=== PATIENT | male | born 1975 | race Caucasian/White ===

== ENCOUNTER 2016-11-12 19:53 | Emergency (ER) | payer OTHER ==
[~2016-11-12] VITALS: Ht 167.6 cm; Wt 83.0 kg
[~2016-11-12 19:53] MED LIST: ACET-2047 PO; ADV25050 INH; ALBU18HF INHALATION; BENZ100C70 PO; LEVO500T10 PO; LEVO500T72 PO; Montelukast Sodium PO; TIOT18CA INH
[2016-11-12 20:20] VITALS: Ht 167.6 cm; Wt 83.0 kg
[2016-11-12] MEDS ORDERED: HYDR-906 PO (20:38)
[2016-11-12] MEDS ORDERED: IBUP-1542 PO (20:40)
[2016-11-12] MEDS ORDERED: CLIN-73 PO (20:43)
--- NOTE | 2016-11-12 20:54 | ERD ---
ER Documentation Chief Complaint Date/Time DATE: 11/12/16 TIME: 20:49 Chief Complaint Pt with tooth pain that may require root canal, seen dentist.x 6 days. HPI Patient is a 41-year-old male with past medical history of COPD who presents to the emergency department with right molar pain 1 week. Patient states he saw a dentist 6 days ago. At that time patient was advised that he will need to have a root canal performed. Patient was placed on amoxicillin and prescribed ibuprofen 800 mg. Patient states that he does have an appointment scheduled for his root canal on next Monday. Patient states his been taking amoxicillin as well as ibuprofen with no alleviation of symptoms. Patient states current pain level is 10 out of 10. Patient states that the ibuprofen is "not making a dent in my pain". Patient denies any fevers, chills, nausea, vomiting, chest pain, shortness of breath, headache, dizziness, loss consciousness. Patient denied any throat pain, trismus, drooling, hyperextension of his neck. ROS All systems reviewed and are negative except as per history of present illness. Medications Home Meds Active Scripts Clindamycin Hcl* (Clindamycin Hcl*) 300 Mg Capsule, 300 MG PO TID for 10 Days, CAP Prov:JAREK WOOD PA-C 11/12/16 Ibuprofen* (Ibuprofen*) 600 Mg Tablet, 600 MG PO Q6 for 30 Days, TAB Prov:JAREK WOOD PA-C 11/12/16 Hydrocodone/Acetaminophen ([place] 5-325 Tablet) 1 Each Tablet, 1 TAB PO Q6H Y for PAIN, #12 TAB Prov:JAREK WOOD PA-C 11/12/16 Levofloxacin* (Levaquin*) 500 Mg Tablet, 500 MG PO DAILY for 10 Days, TAB Prov:MICHAEL TIDWELL 10/24/15 Benzonatate* (Tessalon Perle*) 100 Mg Capsule, 100 MG PO TID, #30 CAP Prov:MICHAEL TIDWELL 10/20/15 Levofloxacin* (Levofloxacin*) 500 Mg Tablet, 500 MG PO DAILY for 10 Days, TAB Prov:MICHAEL TIDWELL 10/20/15 Albuterol Sulfate* (Ventolin HFA*) 18 Gm Hfa.aer.ad, 2 PUFF INHALATION Q4H, #1 INHALER Prov:MICHAEL TIDWELL 10/20/15 Tiotropium [place]* (Spiriva*) 1 Inh Inha, 1 INH INH DAILY, #1 INHALER Prov:MICHAEL TIDWELL 10/20/15 Salmeterol Xinaf/Fluticasone* (Advair*) 1 Inh Inha, 1 INH INH BID, #1 INHALER Prov:MICHAEL TIDWELL 10/20/15 [Montelukast Sodium] 10 MG TAB No Conflict Check, 10 MG PO HS for 30 Days, TAB Prov:MICHAEL TIDWELL 10/20/15 Acetaminophen* (Acetaminophen*) 650 Mg Tablet, 650 MG PO Q6H Y for PAIN AND OR ELEVATED TEMP, #20 TAB Prov:ESTELLE ZAMORA MD 08/30/15 Allergies Allergies: Coded Allergies: No Known Allergy (Unverified , 10/21/15) PMhx/Soc History of Surgery: No Anesthesia Reaction: No Hx Neurological Disorder: No Hx Respiratory Disorders: Yes (COPD) Hx Cardiac Disorders: No Hx Psychiatric Problems: No Hx Miscellaneous Medical Probl: No Hx Alcohol Use: No Hx Substance Use: No Hx Tobacco Use: Yes Physical Exam Vitals Vital Signs Date Time Temp Pulse Resp B/P Pulse Ox O2 Delivery O2 Flow Rate FiO2 11/12/16 20:20 97.4 71 18 164/105 96 Physical Exam GENERAL: Well-developed, well-nourished male. Appears in no acute distress. Speaking in full sentences HEAD: Normocephalic, atraumatic. EYES: Pupils are equally reactive bilaterally. EOMs grossly intact. No conjunctival erythema. ENT: External ear without any masses or tenderness. Auditory canals clear bilaterally. No hemotympanium. TM visualized bilaterally, non-erythematous, non- bulging. Nasal septum midline. Nasal mucosa pink with no discharge. Turbinates normal. Oropharynx is pink without any tonsillar erythema or exudates. Poor dentition. Erythema noted of the right lower gums. No active discharge or bleeding. Right lower molar is tender to palpation. NECK: Supple. No meningismus. Normal range of motion of the neck. No hyperextension of the neck. LUNG: Clear to auscultation bilaterally. No rhonchi, wheezing, rales or coarse breath sounds. HEART: Regular rate and rhythm. No murmurs, rubs or gallops.. EXTREMITIES: Equal pulses bilaterally. No peripheral clubbing, cyanosis or edema. No unilateral leg swelling. NEUROLOGIC: Alert and oriented. Moving all four extremities without any difficulty. Normal speech. Steady gait. SKIN: Normal color. Warm and dry. No rashes or lesions. Procedures/MDM Medical decision making: This is a 41-year-old male with past medical history of COPD who presents with right lower tooth pain 1 week. Patient was advised that he will need a root canal approximately 6 days ago. Patient does have an appointment pending for next Monday. Vital signs were reviewed. Patient is afebrile. Patient is not hypoxic. The patient did not have trismus, muffled voice, uvula deviation, unilateral tonsillar swelling, or drooling. No signs of neck swelling or hyperextension of the neck noted. Given these findings, the patient's presentation is most consistent with tooth pain vs. tooth abscess. I have a much lower clinical concern for epiglottitis, strep pharyngitis, peritonsillar abscess, retropharyngeal abscess or [place] angina. At this time, switch the patient's antibiotics from amoxicillin to clindamycin. Patient will also be given a prescription for [place]. Patient advised to only take this medication when at home and not to take the medication when operating machinery or driving. Prescriptions: Clindamycin, ibuprofen, [place] Discharge: Patient was stable at time of discharge. Patient advised to complete full course of antibiotics. A prescription for Ibuprofen/[place] was provided for pain/ fever control. I have instructed the patient to see a dentist today or tomorrow. I have instructed the patient to promptly return to the ER for any new or worsening symptoms including increased pain, fever, neck swelling/ stiffness, drooling, rash or difficulty breathing. The patient and/or family expressed understanding of and agreement with this plan. All questions were answered. Home care instructions were provided. Patient's blood pressure was elevated (>120/80) but appears stable without evidence of hypertensive emergency, hypertensive urgency or end-organ failure. I had discussion with the patient about the risks of hypertension. I have advised the patient to follow up with his/her primary care physician for outpatient monitoring and treatment for hypertension in 2-3 days. I have instructed the patient to return to the ER for any new or worsening symptoms including chest pain, shortness of breath, headache, blurred vision, confusion, nausea, vomiting or LOC. Departure Diagnosis: Primary Impression: Tooth pain Patient Instructions: Dental Pain Referrals: [facility] ([facility]) Additional Instructions: Call your primary care doctor/DENTIST TOMORROW for an appointment during the next 1-2 days.See the doctor sooner or return here if your condition worsens before your appointment time. JAREK WOOD PA-C Nov 12, 2016 20:53
== END 2016-11-12 20:54 | disposition home or self-care (01) ==
LOC: E/R 19:53
DX: K08.89 Other specified disorders of teeth and supporting structures (principal); J44.9 Chronic obstructive pulmonary disease, unspecified
CPT/HCPCS: 99284